=== PATIENT | male | born 1975 | race Caucasian/White ===

== ENCOUNTER → 2021-04-12 11:14 | Outpatient (CLI) | payer OTHER, SELFPAY ==
--- NOTE | ~2021-04-12 | CT_ITS ---
EXAMINATION: CT abdomen pelvis wo/w con DATE: 04/12/2021 11:58 INDICATION: Microscopic hematuria TECHNIQUE: Computed tomography (CT) of the abdomen and pelvis was performed without intravenous contr ast. CT of the abdomen and pelvis was then performed with a total of 130 mL Omnipaque-350 intravenous contrast using a double-bolus technique for simultaneous opacification of the renal parenchyma and r enal collecting system. Automated exposure control and iterative reconstruction technique were employ ed. The dose-length product was 2370.76 mGy-cm. COMPARISON: None FINDINGS: Lung bases are clear. Heart size is normal. No pericardial or pleural effusion. Small sliding-type hi atal hernia. Liver, gallbladder, spleen, pancreas and bilateral adrenal glands are normal. 4.1 cm cys t at the lower pole of the left kidney and 7 mm cyst at the upper pole of the right kidney. No urolit hiasis or hydronephrosis. The bilateral renal collecting systems and ureters are opacified in their e ntirety with no urothelial irregularities. Bladder is normal. Prominent scattered diverticulosis with out adjacent inflammatory change to suggest diverticulitis. Small bowel and appendix are normal. No f ree intraperitoneal gas or fluid. No pathologically enlarged abdominal or pelvic lymphadenopathy. Tin y fat-containing umbilical hernia. Left-sided L5 pars interarticularis defect with sclerosis consiste nt with stress reaction and likely developing pars defect on the right. Mild lower thoracic spondylos is. IMPRESSION: 1. Bilateral renal cysts. Otherwise normal kidneys and ureters with no urolithiasis, urothelial irreg ularities or other parenchymal lesions to explain patient's hematuria. 2. Small sliding-type hiatal hernia. 3. Diverticulosis. Reviewed, dictated and finalized at location A. IMPRESSION: 1. Bilateral renal cysts. Otherwise normal kidneys and ureters with no urolithi asis, urothelial irregularities or other parenchymal lesions to explain patient 's hematuria. 2. Small sliding-type hiatal hernia. 3. Diverticulosis.
--- NOTE | ~2021-04-12 | XR_ITS ---
XR abdomen/kub 1V 04/12/2021 11:58 INDICATION: Microscopic hematuria TECHNIQUE: KUB COMPARISON: None FINDINGS: Bowel gas pattern is normal. Moderate colonic fecal loading. There is no evidence of free a ir, mass, organomegaly, ascites or obstruction. No abnormal calculi are seen. The bones appear inta ct. IMPRESSION: 1: No acute abdominal abnormality identified. Reviewed, dictated and finalized at location A.
[2021-04-12 11:32] LABS: Estimated Glomerular Filt Rate > 60
== END ==
PROVIDERS: PCP Family Medicine; Visit Provider Nurse Practitioner Family
DX: R31.29 Other microscopic hematuria (principal); N28.1 Cyst of kidney, acquired; K44.9 Diaphragmatic hernia without obstruction or gangrene; K57.30 Diverticulosis of large intestine without perforation or abscess without bleeding
CPT/HCPCS: 74018; 74178; Q9967

== ENCOUNTER 2024-12-13 01:30 | Day surgery (SDC) | payer OTHER, SELFPAY ==
[2024-11-25 13:36] VITALS: BMI 33.3
[2024-12-13 11:21] VITALS: BP 154/84; PULSE 67; RESP 16; TEMP 35.7; O2SAT 97; BMI 33.3
[2024-12-13] MEDS: LACTATED RINGERS 1,000 ML 150 ML IV CONT (11:36)
--- NOTE | 2024-12-13 12:10 | WPDANESEPPF ---
Anes - Initial Pre Proc Eval Procedure: Operation Date: 12/13/24 12:30 Proposed Procedures p Screening Colonoscopy - Korey Hansen MD Date/Time: 12/13/24 12:10 Surgeon: Korey Hansen MD Pre Op Diagnosis: Screening colon Patient Data Age: 49 Gender: M Height: 1.85 m Weight: 114.8 kg Last Vital Signs Temp 35.7 C L 12/13/24 11:21 Pulse 67 12/13/24 11:21 Resp 16 12/13/24 11:21 BP 154/84 H 12/13/24 11:21 Pulse Ox 97 12/13/24 11:21 O2 Del Method Room Air 12/13/24 11:21 Allergies Allergy/AdvReac Type Severity Reaction Status Date / Time cat dander Allergy Severe breathing Verified 12/13/24 11:17 trouble dog dander Allergy Severe breathing Verified 12/13/24 11:17 trouble Home Medications ?Medication ?Instructions ?Recorded ?Confirmed ?Type albuterol sulfate 90 mcg/actuation 2 puff inhalation QID PRN 10/14/19 11/25/24 History aerosol inhaler (ProAir HFA) Shortness Of Breath Or Wheezing Breo Ellipta 200 mcg-25 mcg/dose 1 inh inhalation DAILY #60 ea 09/02/24 12/13/24 Rx powder for inhalation (fluticasone furoate-vilanterol) Patient hx anesthesia problems: none Family hx anesthesia problems: none Results Review: All pre-operative results and documents have been reviewed as part of the pre-operative evaluation. [facility] Past Medical History Medical History Mild persistent asthma Pneumothorax on left (10/14/19) Family History Family History Father Hypertension Dementia Mother No problems noted. 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 Informed Consent: The patient's anesthetic plan and its attendant risks and benefits were discussed with the patient/family/POA. Questions were solicited and answers provided to the satisfaction of the patient/family/POA.
--- NOTE | 2024-12-13 12:28 | P.HP_ITS ---
H&P: HPI History of Present Illness Date/Time: 12/13/24 12:28 Chief Complaint: screening colonoscopy Narrative: This is the patient's first colonoscopy. There are no GI symptoms and there is no family history of colorectal cancer. Review of Systems Review of Systems: All systems reviewed & are unremarkable except as noted in HPI and below PMFSH Past Medical History Medical History Mild persistent asthma Pneumothorax on left (10/14/19) Family History Family History Father Hypertension Dementia Mother No problems noted. 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 Gender identity (if verbalized by the patient): Male Spiritual care concerns: No Agree to blood products: Yes Meds Home Medications and Allergies Home Medications ?Medication ?Instructions ?Recorded ?Confirmed ?Type albuterol sulfate 90 mcg/actuation 2 puff inhalation QID PRN 10/14/19 11/25/24 History aerosol inhaler (ProAir HFA) Shortness Of Breath Or Wheezing Breo Ellipta 200 mcg-25 mcg/dose 1 inh inhalation DAILY #60 ea 09/02/24 12/13/24 Rx powder for inhalation (fluticasone furoate-vilanterol) Allergies Allergy/AdvReac Type Severity Reaction Status Date / Time cat dander Allergy Severe breathing Verified 12/13/24 11:17 trouble dog dander Allergy Severe breathing Verified 12/13/24 11:17 trouble Vital Signs Vital Signs - 24 hr 12/13/24 11:21 Temperature 96.2 F L Pulse Rate 67 Respiratory Rate 16 Blood Pressure 154/84 H Pulse Oximetry 97 Oxygen Delivery Room Air Exam Const: General: cooperative and healthy appearing Resp: Effort & Inspection: normal respiratory effort and able to speak in complete sentences Auscultation: clear to auscultation bilaterally Cardio: Rate: regular rate Rhythm: regular rhythm GI: Inspection: normal to inspection GI Palp: No No hepatosplenomegaly present Auscultation: normal bowel sounds Rectal Exam: deferred Skin: General skin exam: normal color Psych: Appearance: grossly normal Mental Status: mental status grossly normal Assessment and Plan Assessment and plan (1) Encounter for screening colonoscopy: Code(s): Z12.11 - Encounter for screening for malignant neoplasm of colon Status: Acute Assessment and Plan: The patient is deemed a good candidate for the procedure. Consent signed. Will proceed.
[2024-12-13 13:21] VITALS: BP 122/52; PULSE 68; RESP 24; O2SAT 97
[2024-12-13 13:31] VITALS: BP 115/64; PULSE 71; RESP 24; O2SAT 96
[2024-12-13 13:41] VITALS: BP 115/79; PULSE 64; RESP 18; O2SAT 97
== END 2024-12-13 13:53 | disposition home or self-care (01) ==
PROVIDERS: PCP Family Medicine; Visit Provider Internal Medicine Gastroenterology
PROC: 0DJD8ZZ Inspection of Lower Intestinal Tract, Via Natural or Artificial Opening Endoscopic (ICD-10-PCS; CPT 45378; principal; 2024-12-13 12:30)
DX: Z12.11 Encounter for screening for malignant neoplasm of colon (principal); K57.30 Diverticulosis of large intestine without perforation or abscess without bleeding; Z87.891 Personal history of nicotine dependence; E66.9 Obesity, unspecified; Z68.33 Body mass index [BMI] 33.0-33.9, adult
CPT/HCPCS: 45378; J2003; J2704; J7120